=== PATIENT | female | born 1980 ===

== ENCOUNTER → 2020-09-25 | Day surgery (SDC) | payer OTHER ==
[~2020-09-25] VITALS: Ht 154.9 cm; Wt 86.6 kg
[~2020-09-25] MED LIST: ASPIRIN325 MG PO; ATARAX25 MG PO; BIOTIN1 MG PO; BUSPIRONE HCL15 MG PO; FEOSOL325 MG PO; FLONASE ALLER15.8 ML; KAPSPARGO SPRI100 MG PO; LIPITOR40 MG PO; METFORMIN HCL500 MG PO; MINIPRESS2 MG PO; MUCINEX 600MG600 MG PO; NORVASC5 MG PO; PRENATAL FORMU1 EACH PO; SYMBICORT 80-46.9 GM INH; VIIBRYD40 MG PO
[2020-09-25 07:30] LABS: HCG (URINE) SCREEN NEGATIVE (NEGATIVE)
[2020-09-25 08:09] LABS: BASOPHIL 0.3 % (0-2); EOSINOPHIL 2.4 % (0-5); HCT 32.2 % (37.0-47.0); HGB 10.3 g/dl (12.5-16.0); LYMPHOCYTE 31.8 % (15-48); MCH 27.3 pg (25.0-31.0); MCV 85.4 fL (78.0-100.0); MONOCYTE 5.9 % (0-12); MPV 10.1 fL (6.0-9.5); NEUTROPHIL 59.2 % (41-80); NRBC 0; PLT 328 K/uL (150-400); RBC 3.77 M/uL (4.20-5.40); RDW 14.6 % (11.5-14.0); WBC 11.5 K/uL (4.0-10.5)
[2020-09-25 08:25] LABS: ALBUMIN 3.4 g/dL (3.4-5.0); BILIRUBIN - TOTAL 0.3 mg/dL (0.2-1.0); BUN/CREAT RATIO (CALC) 12.5 RATIO; CREATININE 0.56 mg/dL (0.51-0.95); GLOBULIN (CALCULATION) 3.7 g/dL; TOTAL PROTEIN 7.1 g/dL (6.4-8.2)
== END | disposition home or self-care (01) ==
LOC: FAS 07:05
PROVIDERS: Oral & Maxillofacial Surgery
DX: K02.9 Dental caries, unspecified (principal); I10 Essential (primary) hypertension; E11.9 Type 2 diabetes mellitus without complications; F32.9 Major depressive disorder, single episode, unspecified; F41.9 Anxiety disorder, unspecified; Z79.82 Long term (current) use of aspirin
CPT/HCPCS: D7140; D7210; 36415; 71045; 80053; 84703; 85025; J1170; J2250; J2405; J2704; J2710; J3010; J7120